=== PATIENT | male | born 1950 | race Caucasian/White ===

== ENCOUNTER 2018-10-22 11:15 | Emergency (ER) | payer MEDICARE ==
[~2018-10-22] VITALS: Ht 177.8 cm; Wt 103.4 kg
--- NOTE | 2018-10-22 12:06 | NUR ---
PATIENT PRESENTS TO ED TODAY FOR RLQ PAIN AND PAINFUL URINATION STARTING LAST NIGHT, DENIES N/V/D, HX OF KIDNEY STONES. AWAITING MD ORDERS, CALL LIGHT WITHIN REACH, NAD NOTED.
[2018-10-22] MEDS ORDERED: ATOR40TA78 PO (12:08)
[2018-10-22] MEDS ORDERED: LISI1TAB7 PO (12:09)
[2018-10-22] MEDS ORDERED: MOME13HF INH (12:09)
[2018-10-22] MEDS ORDERED: AZEL137S4 NAS (12:10)
[2018-10-22] MEDS ORDERED: MONT10TA6 PO (12:10)
[2018-10-22] MEDS ORDERED: ONDANSETRON 2MG/ML, 2ML ONE (12:23)
[2018-10-22] MEDS ORDERED: MORPHINE SULFATE 4 MG/ML, 1ML ONE (12:24)
--- NOTE | 2018-10-22 12:27 | NUR ---
PATIENT TO CT VIA [facility] NOTED.
[2018-10-22 12:30] LABS: BASOPHILS # (AUTO) 0.03 x10^3/uL (0-0.1); BASOPHILS % (AUTO) 0 % (0-1); EOSINOPHILS # (AUTO) 0.34 x10^3/uL (0-0.4); EOSINOPHILS % (AUTO) 4 % (1-7); LYMPHOCYTES # (AUTO) 1.24 x10^3/uL (1-3.4); LYMPHOCYTES % (AUTO) 16 % (22-44); MD NO; MEAN CORPUSCULAR HEMOGLOBIN 29.2 pg (27.5-34.5); MEAN CORPUSCULAR HGB CONC 33.2 g/dL (33.2-36.2); MEAN CORPUSCULAR VOLUME 87.9 fL (81-97); MONOCYTES # (AUTO) 0.75 x10^3/uL (0.2-0.8); MONOCYTES % (AUTO) 10 % (2-9); NEUTROPHILS # (AUTO) 5.33 x10^3/uL (1.8-6.8); NEUTROPHILS % (AUTO) 69 % (42-75); PLATELET COUNT 334 x10^3/uL (130-400); RED BLOOD COUNT 5.57 x10^6/uL (4.38-5.82); RED CELL DISTRIBUTION WIDTH 14.6 % (9.4-14.8)
[2018-10-22] MEDS ORDERED: MORPHINE SULFATE 4 MG/ML, 1ML IVPush PRN (12:30)
[2018-10-22] MEDS ORDERED: ONDANSETRON 2MG/ML, 2ML IVPush ONE (12:30)
[2018-10-22 12:41] LABS: ALANINE AMINOTRANSFERASE 73 U/L (12-78); ALBUMIN 3.6 g/dL (3.4-5.0); ANION GAP 7 mmol/L (5-15); CALCIUM 9.4 mg/dL (8.5-10.1); CHLORIDE 106 mmol/L (98-107); CREATININE 0.95 mg/dL (0.7-1.3)
[2018-10-22 12:44] LABS: ALKALINE PHOSPHATASE 116 U/L (45-117); BILIRUBIN,TOTAL 0.6 mg/dL (0.2-1.0); TOTAL PROTEIN 7.9 g/dL (6.4-8.2)
--- NOTE | 2018-10-22 13:07 | NUR ---
RECEIVED REPORT FROM TIANNA ARAUJO. [facility] NADN. [facility].
[2018-10-22 13:32] LABS: MICROSCOPIC NOT IND
[2018-10-22 13:36] LABS: CULTURE INDICATED? NO
[2018-10-22] MEDS ORDERED: KETOROLAC 30 MG/1 ML ONE (13:55)
[2018-10-22] MEDS ORDERED: KETOROLAC 60 MG/2 ML IVPush ONE (14:00)
[2018-10-22 14:14] VITALS: BP 114/72
--- NOTE | 2018-10-22 14:14 | NUR ---
PT RESTING ON GURNEY. LEON VSS. PT STATES PAIN 0/10.
== END 2018-10-22 14:51 | disposition home or self-care (01) ==
LOC: ED 14:36
DX: N13.2 Hydronephrosis with renal and ureteral calculous obstruction (principal); I10 Essential (primary) hypertension
CPT/HCPCS: 36415; 74176; 80053; 81003; 85025; 96374; 96375; 99284; J1885; J2270; J2405

== ENCOUNTER → 2020-07-10 | Outpatient (CLI) | payer MEDICARE ==
[~2020-07-10] MED LIST: ATOR40TA78 PO; AZEL137S4 NAS; CHOL10003 PO; LISI1TAB20 PO; LORA-439 PO; MOME13HF INH; MONT10TA6 PO; Vitamin B12 PO; Vitamin B6 PO; ZINC50CA PO
[2020-07-10 15:37] LABS: CHLORIDE 106 mmol/L (98-107)
[2020-07-10 15:44] LABS: ALANINE AMINOTRANSFERASE 34 U/L (12-78); ALBUMIN 3.8 g/dL (3.4-5.0); ALKALINE PHOSPHATASE 85 U/L (45-117); ANION GAP 8 mmol/L (5-15); BILIRUBIN,TOTAL 0.8 mg/dL (0.2-1.0); CALCIUM 9.7 mg/dL (8.5-10.1); CREATININE 0.95 mg/dL (0.7-1.3); TOTAL PROTEIN 8.1 g/dL (6.4-8.2)
== END | disposition home or self-care (01) ==
LOC: STAR 13:23
PROVIDERS: ATTEND Surgery
DX: Z01.812 Encounter for preprocedural laboratory examination (principal); Z20.822 Contact with and (suspected) exposure to COVID-19; K43.9 Ventral hernia without obstruction or gangrene
CPT/HCPCS: 80053; 87635; 93005

== ENCOUNTER → 2020-07-14 | Day surgery (SDC) | payer MEDICARE ==
[~2020-07-14] VITALS: Ht 175.3 cm; Wt 94.8 kg
[~2020-07-14] MED LIST changes: +ACETAMINOPHEN 325 MG TABLET PO PRN; +BUPIVACAINE/PF 0.5% ONE; +CEFAZOLIN 1,000 MG ONE; +CHLORHEXIDINE 15 ML UDC MM ONE; +DEXAMETHASONE 4 MG/ML, 1ML ONE; +EPHEDRINE 50 MG/ML, 1ML IVPush PRN; +EPINEPHRINE 1 MG/ML, 1ML ONE; +FENTANYL PF 100 MCG/2ML IV PRN; +FENTANYL PF 250 MCG/5ML ONE; +HYDROmorphone 1 MG/ML, 1ML INJ IVPush PRN; +KETOROLAC 30 MG/1 ML ONE; +LABETALOL 5MG/ML, 20ML IV PRN; +LACTATED RINGERS 1,000 ML IV SCH; +LIDOCAINE-MPF 2% ,5ML ONE; +METHOCARBAMOL 1,000 MG in DEXTROSE 5% 100 ML IV PRN; +ONDANSETRON 2MG/ML, 2ML IVPush PRN; +ONDANSETRON 2MG/ML, 2ML ONE; +OXYC5TAB98 PO; +OXYcodone 5 MG/5 ML ORAL.SOL UDC ONE; +OXYcodone 5 MG/5 ML ORAL.SOL UDC PO PRN; +PROMETHAZINE 25 MG/ML, 1ML IVPush PRN; +PROPOFOL 10 MG/ML, 20ML ONE; +ROCURONIUM 10MG/ML,5ML ONE; +SUCCINYLCHOLINE 20 MG/ML, 10ML ONE; +SUGAMMADEX 200 MG/2 ML IVPush ONE; +hydrALAzine 20 MG/ML, 1ML IV PRN
[2020-07-14 11:07] VITALS: BP 143/89
== END | disposition home or self-care (01) ==
LOC: OUT 08:00
PROVIDERS: ATTEND Surgery
DX: K42.0 Umbilical hernia with obstruction, without gangrene (principal); K43.6 Other and unspecified ventral hernia with obstruction, without gangrene; I10 Essential (primary) hypertension; E78.5 Hyperlipidemia, unspecified; G47.33 Obstructive sleep apnea (adult) (pediatric); J45.909 Unspecified asthma, uncomplicated; Z79.899 Other long term (current) drug therapy; Z88.8 Allergy status to other drugs, medicaments and biological substances; Z98.890 Other specified postprocedural states
CPT/HCPCS: 15734; 49653; C1781; J0171; J0330; J0690; J1100; J1885; J2405; J2704; J3010; J7120